=== PATIENT | female | born 1995 | race Hispanic/Latino ===

== ENCOUNTER 2020-08-02 06:46 | Emergency (ER) | payer BC ==
[2020-08-02] MEDS ORDERED: KETOROLAC TROMETHAMINE 15MG/ML ONE (08:24)
[2020-08-02] MEDS ORDERED: ONDANSETRON HCL 4 MG/2 ML VIAL ONE (08:24)
[2020-08-02] MEDS ORDERED: MORPHINE SULFATE 4 MG/1ML SYG ONE (08:25)
[2020-08-02] MEDS ORDERED: LIDOCAINE HCL 1% 20 ML VIAL ONE (09:20)
== END 2020-08-02 10:17 | disposition home or self-care (01) ==
LOC: EDH 06:46
DX: N75.1 Abscess of Bartholin's gland (principal)
CPT/HCPCS: 56420; 96374; 96375; 99284; J1885; J2270; J2405